=== PATIENT | male | born 1935 | race Caucasian/White ===

== ENCOUNTER 2017-12-20 10:03 | Inpatient (IN) | payer OTHER, MEDICARE ==
[2017-12-20] VITALS (9 sets, daily range): BP systolic 120–160; BP diastolic 58–78; PULSE 62–96; RESP 16–20; TEMP 97.2–97.7; O2SAT 9–97
[~2017-12-20] VITALS: Ht 170.2 cm; Wt 93.0 kg
[~2017-12-20 10:03] MED LIST: GLIP5 PO; GLUC500C56 PO; LEVA500T33 PO; LORT7.5T3 PO; METF-324 PO; TAB-TAB PO; VASO10TA8 PO
[2017-12-20] MEDS ORDERED: ENAL5TAB PO (10:38)
[2017-12-20] MEDS ORDERED: GLIP10TA6 PO (10:38)
[2017-12-20] MEDS ORDERED: FINA5TAB2 (10:38)
[2017-12-20] MEDS ORDERED: BISACODYL 10 MG SUPP RECTAL PRN (11:15)
[2017-12-20] MEDS ORDERED: LACTULOSE SYRUP 20 GM/30 ML CUP PO PRN (11:15)
[2017-12-20] MEDS ORDERED: ACETAMINOPHEN 325 MG TAB PO PRN (11:15)
[2017-12-20] MEDS ORDERED: ceFAZolin 2 GM PREMIX 50 ML IV SCH (11:15)
[2017-12-20] MEDS ORDERED: SENNOSIDES 8.6 MG TAB PO PRN (11:15)
[2017-12-20] MEDS ORDERED: MAGNESIUM HYDROXIDE SUSP 30 ML CUP PO PRN (11:15)
[2017-12-20] MEDS ORDERED: cloNIDine HCL 0.1 MG TAB PO PRN (11:15)
[2017-12-20] MEDS ORDERED: SODIUM CHLORIDE 0.9% FLUSH 10 ML FLUSH IV FLUSH PRN (11:15)
[2017-12-20] MEDS ORDERED: ONDANSETRON HCL 4 MG/2 ML VIAL IV PUSH PRN (11:15)
[2017-12-20] MEDS ORDERED: ALUMINUM/MAGNESIUM/SIMETH 30 ML CUP PO PRN (11:15)
[2017-12-20 11:31] LABS: PROTHROMBIN TIME - PATIENT 10.4 SEC (9.8-11.6)
[2017-12-20] MEDS: SODIUM CHLOR 0.45% 1000 ML IV SCH ×2 (11:41→19:59)
[2017-12-20] MEDS ORDERED: MIDAZOLAM HCL 5 MG/5 ML VIAL ONE (12:50)
[2017-12-20] MEDS ORDERED: fentaNYL CITRATE 250 MCG/5 ML AMP ONE (12:50)
--- NOTE | 2017-12-20 13:34 | PD.RAD ---
Post Procedure Progress Note Procedure Date: December 20, 2017 Supervising Radiologist: Kwan Russell Proceduralist/Assist: Albina Curtis RT(R)(), Rosanne Carmona RT(R) Anesthesia: Conscious Sedation Plan of Activity Patient to Unit: [facility] Patient Condition: Good See PACS Report for procedural detail/treatment Kwan Russell MD December 20, 2017 13:34
[2017-12-20] MEDS: DOCUSATE SODIUM 50 MG/SENNA 8.6 MG TAB PO SCH (21:00)
[2017-12-20] MEDS: SODIUM CHLORIDE 0.9% FLUSH 10 ML FLUSH IV FLUSH SCH (21:00)
[2017-12-20] MEDS: SODIUM CHLOR 0.9% 1000 ML INJ 1,000 ML IV SCH (21:03)
[2017-12-21 00:59] VITALS: BP 94/50; PULSE 63; RESP 18; TEMP 97.8; O2SAT 95
[2017-12-21] MEDS: SODIUM CHLOR 0.9% 1000 ML INJ 1,000 ML IV SCH ×2 (03:55→17:03)
[2017-12-21 05:03] VITALS: BP 125/71; PULSE 88; RESP 18; TEMP 97.6; O2SAT 95
[2017-12-21] MEDS: SODIUM CHLORIDE 0.9% FLUSH 10 ML FLUSH IV FLUSH SCH ×2 (07:59→21:00)
[2017-12-21] MEDS: DOCUSATE SODIUM 50 MG/SENNA 8.6 MG TAB PO SCH ×2 (07:59→21:00)
[2017-12-21] MEDS: PANTOPRAZOLE SOD 40 MG DELAYED RELEASE TAB PO SCH (07:59)
[2017-12-21 08:35] VITALS: BP 151/83; PULSE 82; RESP 18; TEMP 97.7; O2SAT 95
--- NOTE | 2017-12-21 11:43 | HHI.NSPN ---
(Ovidio Perez) History Chief Complaint: Difficulty walking. (Ovidio Perez) Interval History 12/21/17: Pt had lumbar spinal drain placed yesterday. He denies headaches. His memory is poor as he doesn't remember who I am despite me seeing him in the office. No radiculopathy or paresthesias in LEs. He felt he ambulated better with PT today, note not yet available. (Ovidio Perez) Review of Systems General: Negative for: fever, chills, insomnia Respiratory: Negative for: shortness of breath, cough, sputum Cardiovascular: Negative for: chest pain Gastrointestinal: Negative for: nausea, vomitting, diarrhea, constipation ( Ovidio Perez) Exam Results Vital Signs Date Time Temp Pulse Resp B/P (MAP) Pulse Ox O2 Delivery O2 Flow Rate FiO2 12/21/17 08:35 97.7 82 18 151/83 (105) 95 12/20/17 17:00 Room Air 12/20/17 15:00 2.00 Intake and Output 12/21/17 12/21/17 12/22/17 08:00 16:00 00:00 Intake Total 902 ml Output Total 280 ml Balance 622 ml (Ovidio Perez) Physical Examination General: Pt awake and alert. Sitting up in bed in NAD. Eyes: Pupils equal. Sclera anicteric. Resp: CTA bilaterally. Heart: NSR no murmurs Abd: Soft positive bs Skin: No cyanosis or erythema. SCDs in place. Muscle: Moves all 4 extremities with good strength. Neuro: Pt awake and alert. Sitting up in bed. Pupils equal. Speech clear. Sensation intact in LEs. (Ovidio Perez) Medical Decision Making Impression and Plan A: 82 y/o M s/p lumbar spinal drain for evaluation of possible NPH. P: Continue with lumbar spinal drain Continue with PT. (Ovidio Perez) Ovidio Perez December 21, 2017 11:43 Aravind Kuo MD December 22, 2017 07:31
[2017-12-21 12:00] VITALS: BP 123/56; PULSE 70; RESP 18; TEMP 98.1; O2SAT 96
--- NOTE | 2017-12-21 15:08 | RADRPT ---
EXAM DATE/TIME: 12/20/2017 13:20 [place] COMPARISON: No previous studies available for comparison. INDICATIONS : Patient presents with weakness and falls in need of lumbar drain. MEDICAL HISTORY : DM HTN Dysuria Arthropathy Urinary Incontinance SURGIAL HISTORY : Laproscopic Cholecystectomy ENCOUNTER: Initial ACUITY: 1 year PAIN SCORE: 0/10 LUMBAR PUNCTURE TIME: 1315 hours FLUORO TIME: 1.08 minutes IMAGE SERIES: 3 SEDATION TIME: 30 minutes LEVEL: Tip of lumbar drain was placed at T10 ? cm of water 1.) 2 mg midazolam (Versed) IV 2.) 100 mcg fentanyl (Sublimaze) IV DEVICE(S): 1.) 5 Arabic lumbar drain catheter PROCEDURE : 1. Fluoroscopically guided lumbar drain placement. 2. Conscious sedation with continuous EKG and oximetry monitoring. The risks, benefits and alternatives to the procedure were explained and verbal and written consent w as obtained. The site was prepped in sterile fashion. Full sterile technique was used, including ca p, mask, sterile gloves and gown and a large sterile sheet. Hand hygiene and 2% chlorhexidine and/or betadine/alcohol prep was utilized per protocol for cutaneous antisepsis. The skin and subcutaneous tissues were infiltrated with local anesthetic solution. With fluoroscopic guidance the lumbar thecal sac was punctured with a 14 gauge Touhy needle and a lum bar drain was placed with its tip at the level as described above and the catheter was sutured in darby ce. CSF was identified returning from the catheter at the termination of the procedure. Conscious sedation was performed with the prescribed dosages and duration as above in the presence of an independent trained radiology nurse to assist in the monitoring of the patient. EKG and oximetry remained stable throughout the procedure. The patient tolerated the procedure well and there were n o complications. The patient was sent to post anesthesia recovery in stable condition. CONCLUSION: Uncomplicated lumbar drain placement as above. Kwan Russell MD on December 21, 2017 at 15:05 Board Certified Radiologist. This report was verified electronically.
[2017-12-21 16:00] VITALS: BP 160/76; PULSE 72; RESP 18; TEMP 97.6; O2SAT 95
[2017-12-21 20:12] VITALS: BP 148/65; PULSE 85; RESP 18; TEMP 98.7; O2SAT 97
[2017-12-22 00:26] VITALS: BP 177/81; PULSE 82; RESP 20; TEMP 97.8; O2SAT 97
[2017-12-22 04:31] VITALS: BP 152/76; PULSE 84; RESP 20; TEMP 97.1; O2SAT 99
[2017-12-22] MEDS: SODIUM CHLOR 0.9% 1000 ML INJ 1,000 ML IV SCH ×3 (05:57→22:56)
[2017-12-22] MEDS ORDERED: DEXTROSE 50% IN WATER 50 ML VIAL(D50) IV PUSH PRN (07:45)
[2017-12-22] MEDS ORDERED: GLUCAGON 1 MG/ML VIAL OTHER PRN (07:45)
[2017-12-22] MEDS: SODIUM CHLORIDE 0.9% FLUSH 10 ML FLUSH IV FLUSH SCH ×2 (08:39→22:55)
[2017-12-22] MEDS: PANTOPRAZOLE SOD 40 MG DELAYED RELEASE TAB PO SCH (08:39)
[2017-12-22] MEDS: INSULIN NovoLIN REGULAR SUPPLEMENTAL SCALE SQ SCH ×4 (08:39→22:55)
[2017-12-22] MEDS: DOCUSATE SODIUM 50 MG/SENNA 8.6 MG TAB PO SCH ×2 (08:40→22:55)
[2017-12-22] MEDS: FINASTERIDE 5 MG TAB PO SCH (08:42)
[2017-12-22] MEDS: glipiZIDE 10 MG TAB PO SCH (08:43)
[2017-12-22] MEDS: ENALAPRIL MALEATE 5 MG TAB PO SCH (08:43)
[2017-12-22 09:04] VITALS: BP 150/68; PULSE 66; RESP 19; TEMP 97.5; O2SAT 95
[2017-12-22 12:00] VITALS: BP 126/62; PULSE 68; RESP 20; TEMP 97.5; O2SAT 96
--- NOTE | 2017-12-22 12:42 | HHI.NSPN ---
History Chief Complaint: Difficulty walking. Interval History 12/21/17: Pt had lumbar spinal drain placed yesterday. He denies headaches. His memory is poor as he doesn't remember who I am despite me seeing him in the office. No radiculopathy or paresthesias in LEs. He felt he ambulated better with PT today, note not yet available. 12/22/17: Pt states walking better today. Denies headaches. No n/v. States urinary incontinence with some improvement. Memory stable. Review of Systems General: Negative for: fever, chills, insomnia Respiratory: Negative for: shortness of breath, cough, sputum Cardiovascular: Negative for: chest pain Gastrointestinal: Negative for: nausea, vomitting, diarrhea, constipation Exam Results Vital Signs Date Time Temp Pulse Resp B/P (MAP) Pulse Ox O2 Delivery O2 Flow Rate FiO2 12/22/17 09:04 97.5 66 19 150/68 (95) 95 12/20/17 17:00 Room Air 12/20/17 15:00 2.00 Intake and Output 12/22/17 12/22/17 12/23/17 08:00 16:00 00:00 Intake Total 1000 ml Output Total 480 ml 80 ml Balance 520 ml -80 ml Physical Examination General: Pt awake and alert. Sitting up in chair in NAD. Eyes: Pupils equal. Sclera anicteric. Resp: CTA bilaterally. Heart: NSR no murmurs Abd: Soft positive bs Skin: No cyanosis or erythema. Muscle: Moves all 4 extremities with good strength. Ambulated with PT with improved gait. Neuro: Pt awake and alert. Sitting up in bed. Pupils equal. Speech clear. Sensation intact in LEs. Lab, Micro, Other Results Last Impressions Lumbar Puncture Fluoroscopy 12/20/17 0000 Signed Impressions: Service Date/Time: December 13:20 - CONCLUSION: Uncomplicated lumbar drain placement as above. Kwan Russell MD 12/22/17 12/22/17 12/23/17 15:00 23:00 07:00 Output Total 80 ml Balance -80 ml Drainage Total 80 ml Medical Decision Making Impression and Plan A: 82 y/o M s/p lumbar spinal drain for evaluation of possible NPH. P: Continue with lumbar spinal drain Continue with PT. d/c lumbar spinal drain tomorrow am. Ovidio Perez December 22, 2017 12:42 pm
[2017-12-22] MEDS ORDERED: LOPERAMIDE HCL 2 MG CAP PO PRN (12:45)
[2017-12-22 16:00] VITALS: BP 169/73; PULSE 67; RESP 19; TEMP 97.5; O2SAT 97
[2017-12-22 22:10] VITALS: BP 150/70; PULSE 80; RESP 17; TEMP 97.9; O2SAT 95
[2017-12-23 00:20] VITALS: BP 145/65; PULSE 88; RESP 18; TEMP 98.1; O2SAT 96
[2017-12-23 04:45] VITALS: BP 140/78; PULSE 78; RESP 19; TEMP 97; O2SAT 96
[2017-12-23 08:00] VITALS: BP 182/78; PULSE 64; RESP 18; TEMP 97.3; O2SAT 97
[2017-12-23] MEDS: SODIUM CHLORIDE 0.9% FLUSH 10 ML FLUSH IV FLUSH SCH (08:52)
[2017-12-23] MEDS: INSULIN NovoLIN REGULAR SUPPLEMENTAL SCALE SQ SCH ×2 (08:52→13:38)
[2017-12-23] MEDS: PANTOPRAZOLE SOD 40 MG DELAYED RELEASE TAB PO SCH (08:53)
[2017-12-23] MEDS: FINASTERIDE 5 MG TAB PO SCH (08:53)
[2017-12-23] MEDS: glipiZIDE 10 MG TAB PO SCH (08:53)
[2017-12-23] MEDS: ENALAPRIL MALEATE 5 MG TAB PO SCH (08:53)
[2017-12-23] MEDS: DOCUSATE SODIUM 50 MG/SENNA 8.6 MG TAB PO SCH ×2 (08:53→08:57)
[2017-12-23] MEDS: SODIUM CHLOR 0.9% 1000 ML INJ 1,000 ML IV SCH (09:00)
--- NOTE | 2017-12-23 11:06 | HHI.NSPN ---
(Ovidio Perez) History Chief Complaint: Difficulty walking. (Ovidio Perez) Interval History 12/21/17: Pt had lumbar spinal drain placed yesterday. He denies headaches. His memory is poor as he doesn't remember who I am despite me seeing him in the office. No radiculopathy or paresthesias in LEs. He felt he ambulated better with PT today, note not yet available. 12/22/17: Pt states walking better today. Denies headaches. No n/v. States urinary incontinence with some improvement. Memory stable. 12/23/17: Pts lumbar drain removed this morning. He denies headaches. No numbness or paresthesias in LEs. He wants to go home later today if no drainage. (Ovidio Perez) Review of Systems General: Negative for: fever, chills, insomnia Respiratory: Negative for: shortness of breath, cough, sputum Cardiovascular: Negative for: chest pain Gastrointestinal: Negative for: nausea, vomitting, diarrhea, constipation ( Ovidio Perez) Exam Results Vital Signs Date Time Temp Pulse Resp B/P (MAP) Pulse Ox O2 Delivery O2 Flow Rate FiO2 12/23/17 08:00 97.3 64 18 182/78 (112) 97 12/20/17 17:00 Room Air 12/20/17 15:00 2.00 Intake and Output 12/23/17 12/23/17 12/23/17 07:59 15:59 23:59 Intake Total 700 ml Output Total 980 ml 250 ml Balance -280 ml -250 ml (Ovidio Perez) Physical Examination General: Pt awake and alert. laying in bed. Eyes: Pupils equal. Sclera anicteric. Resp: CTA bilaterally. Heart: NSR no murmurs Abd: Soft positive bs Skin: No cyanosis or erythema. Muscle: Moves all 4 extremities with good strength. Neuro: Pt awake and alert. laying flat in bed. Pupils equal. Speech clear. Sensation intact in LEs. (Ovidio Perez) Lab, Micro, Other Results Last Impressions Lumbar Puncture Fluoroscopy 12/20/17 0000 Signed Impressions: Service Date/Time: December 13:20 - CONCLUSION: Uncomplicated lumbar drain placement as above. Kwan Russell MD 12/23/17 12/23/17 12/24/17 14:59 22:59 06:59 Output Total 250 ml Balance -250 ml Output Urine Total 250 ml (Ovidio Perez) Medical Decision Making Impression and Plan A: 82 y/o M s/p lumbar spinal drain for evaluation of possible NPH. P: lumbar spinal drain removed. Continue with bedrest for 6 hours. oob after 6 hours and d/c home if no drainage. (Ovidio Perez) Attending Statement The exam, history, and the medical decision-making described in the above note were completed with the assistance of the mid-level provider. I reviewed and agree with the findings presented. I attest that I had a [id number] encounter with the patient on the same day, and personally performed and documented my assessment and findings in the medical record. (Aravind Kuo MD) Ovidio Perez December 23, 2017 11:06 Aravind Kuo MD December 23, 2017 12:04
[2017-12-23 12:00] VITALS: BP 170/75; PULSE 62; RESP 18; TEMP 97.9; O2SAT 97
== END 2017-12-23 14:28 | disposition home or self-care (01) | DRG 93 ==
LOC: HROP 10:03 → HRIP 10:06 → HROP 18:12 → N05A 18:17
PROVIDERS: ADMIT Neurological Surgery; ATTEND Neurological Surgery
PROC: 009U30Z Drainage of Spinal Canal with Drainage Device, Percutaneous Approach (ICD-10-PCS; principal; 2017-12-21)
PROC: B01BZZZ Fluoroscopy of Spinal Cord (ICD-10-PCS; 2017-12-21)
DX: R27.0 Ataxia, unspecified (principal); E11.9 Type 2 diabetes mellitus without complications; Z79.84 Long term (current) use of oral hypoglycemic drugs; I10 Essential (primary) hypertension; R32 Unspecified urinary incontinence; Z91.81 History of falling
CPT/HCPCS: 63741; 77003; 82948; 85610; 85730; 94150; 99152; 99153; C1755; J2250; J3010; J7030

== ENCOUNTER → 2018-01-07 | Outpatient (CLI) | payer OTHER ==
[~2018-01-07] MED LIST changes: +DULA10IN SQ; +ENAL5TAB PO; +FINA5TAB2; +GLIP10TA6 PO; -GLIP5 PO; -GLUC500C56 PO; +HYDR-3366 PO; -LEVA500T33 PO; +LISI10TA3 PO; -LORT7.5T3 PO; -METF-324 PO; -TAB-TAB PO; -VASO10TA8 PO; +VITA2000 PO
== END ==
LOC: CPRE 11:24
PROVIDERS: ATTEND Neurological Surgery
DX: G91.2 (Idiopathic) normal pressure hydrocephalus (principal)

== ENCOUNTER 2018-01-11 08:06 | Inpatient (IN) | payer OTHER, MEDICARE ==
[~2018-01-11] VITALS: Ht 172.7 cm; Wt 99.4 kg
[~2018-01-11 08:06] MED LIST changes: -ENAL5TAB PO; -HYDR-3366 PO
[2018-01-11] MEDS ORDERED: LACTATED RINGER'S 1000 ML IV PRN (08:45)
[2018-01-11] MEDS ORDERED: METOPROLOL TARTRATE 25 MG TAB PO PRN (08:45)
[2018-01-11] MEDS ORDERED: SODIUM CHLORID 0.9% 500 ML IV PRN (08:45)
[2018-01-11] MEDS ORDERED: CHLORHEXIDINE GLUCONATE 2 % 1 PACK (2 CLOTHS) TOPICAL PRN (08:45)
[2018-01-11] MEDS ORDERED: VANCOMYCIN 1 GM/200 ML PREMIX ON-CALL IV SCH (08:45)
[2018-01-11] MEDS ORDERED: POVIDONE IODINE 5% (ANTISEPSIS KIT) 4 APPLICATIONS EACH NARE PRN (08:45)
[2018-01-11] MEDS ORDERED: VANCOMYCIN HCL 1000 MG VIAL ONE (08:53)
[2018-01-11] MEDS ORDERED: SODIUM CHLOR 0.9% 250 ML INJ 250 ML ONE (08:53)
[2018-01-11] MEDS ORDERED: ACETAMINOPHEN 1000 MG/100 ML 100 ML IV ONE (10:29)
[2018-01-11] MEDS ORDERED: GELFOAM SIZE 100 ONE (10:58)
[2018-01-11] MEDS ORDERED: THROMBIN (TOPICAL) 5,000 UNIT VIAL ONE (10:58)
[2018-01-11] MEDS ORDERED: GENTAMICIN SULFATE 80 MG/2 ML VIAL ONE (10:58)
[2018-01-11] MEDS ORDERED: BUPIVACAINE/EPINEPHRINE 0.5% PF 10 ML VIAL ONE (10:58)
[2018-01-11] MEDS ORDERED: LIDOCAINE HCL 1% PF 5 ML SYRINGE OTHER ONE (12:00)
[2018-01-11] MEDS ORDERED: PROPOFOL 200 MG/20 ML AMP IV ONE (12:00)
[2018-01-11] MEDS ORDERED: PHENYLEPH/NS 1000 MCG/10 ML SYR IV ONE (12:00)
[2018-01-11] MEDS ORDERED: GLYCOPYRROLATE 1 MG/5 ML SYRINGE IV PUSH ONE (12:00)
[2018-01-11] MEDS ORDERED: ROCURONIUM INJ 50 MG/5 ML SYRINGE IV PUSH ONE (12:00)
[2018-01-11] MEDS ORDERED: ONDANSETRON HCL 4 MG/2 ML VIAL IV PUSH ONE (12:00)
[2018-01-11] MEDS ORDERED: DEXAMETHASONE SOD PHOS 4 MG/ML VIAL IV ONE (12:00)
[2018-01-11] MEDS ORDERED: NS + KCL 20 MEQ INJ 1,000 ML IV SCH (12:40)
[2018-01-11] MEDS ORDERED: LACTULOSE SYRUP 20 GM/30 ML CUP PO PRN (12:45)
[2018-01-11] MEDS ORDERED: ACETAMINOPHEN 325 MG TAB PO PRN (12:45)
[2018-01-11] MEDS ORDERED: ALUMINUM/MAGNESIUM/SIMETH 30 ML CUP PO PRN (12:45)
[2018-01-11] MEDS ORDERED: RESP: ALBUTEROL 2.5 MG/3 ML NEB (PRN) NEB (12:45)
[2018-01-11] MEDS ORDERED: MAGNESIUM HYDROXIDE SUSP 30 ML CUP PO PRN (12:45)
[2018-01-11] MEDS ORDERED: GLUCAGON 1 MG/ML VIAL OTHER PRN (12:45)
[2018-01-11] MEDS ORDERED: DO NOT ADM ANY ANTICOAGULANT DRUGS PRN (12:45)
[2018-01-11] MEDS ORDERED: BISACODYL 10 MG SUPP RECTAL PRN (12:45)
[2018-01-11] MEDS ORDERED: PROMETHAZINE INJ 25 MG/ML VIAL IM PRN (12:45)
[2018-01-11] MEDS ORDERED: DEXTROSE 50% IN WATER 50 ML VIAL(D50) IV PUSH PRN (12:45)
[2018-01-11] MEDS ORDERED: SENNOSIDES 8.6 MG TAB PO PRN (12:45)
[2018-01-11] MEDS ORDERED: MENTHOL LOZENGE BUCCAL PRN (12:45)
[2018-01-11] MEDS ORDERED: SODIUM CHLORIDE 0.9% FLUSH 10 ML FLUSH IV FLUSH PRN (12:45)
--- NOTE | 2018-01-11 12:48 | PD.OP ---
cc: Laurie Yusuf MD Operative Report Date of Surgery: January 11, 2018 Preoperative Diagnosis: Normal-pressure hydrocephalus Postoperative Diagnosis: Same Procedure: Right frontal ventriculoperitoneal shunt placement with Codman programmable valve Anesthesia: General endotracheal by Alexus baptiste Surgeon: Aravind Kuo MD Physical Therapist Clinic Director(s): Radha Hoover Operation and Findings: Following administration of general endotracheal anesthesia, patient was placed in a supine position and a Brunson catheter placed along with sequential compression devices. Vancomycin 1 g was and administered intravenously. The head secured in donut and turned 30 to the left side and a shoulder roll placed in the right side and all pressure points adequately padded. The right frontal parietal occipital anterior neck and chest and abdomen area was shaved and prepped with a Betadine solution and Chloraprep. Draping with Ioban also undertaken along with the usual sterile draping. Using landmarks of 11 cm behind the nasion and 3 cm right of the midline a curvilinear right frontal incision was made after infiltrating the skin was 0.5% Marcaine with epinephrine solution. A ramana hole was made with an automatic wood web weaving machine operator and the underlying dura cauterized with bipolar cautery and opened in a cruciate format. Right subcostal abdominal incision site was then infiltrated with 0.5% Marcaine with epinephrine solution and incision made extending down through the anterior fascia of the rectus sheath and then the posterior fascia also incised and the peritoneal wall identified and also incised in a 3-0 silk pursestring suture was been placed around the opening. A subcutaneous tunnel was then created between the frontal and the abdominal incision site with a small interim incision in the neck and the bactiseal Codman peritoneal catheter was then tunneled through. The catheter was connected to a [employer] Codman programmable valve set at 100 mm a water setting with the anti-siphon device. The ventricular catheter was then passed the 6 cm in depth and clear CSF encountered and this was then connected to the proximal reservoir valve with a 2 -0 silk tie. Good distal CSF flow run off was noted from the peritoneal catheter which was then dropped into the peritoneum and the pursestring suture was tied along with the approximation of the anterior rectus sheath with 3-0 Vicryl interposition and 3-0 Vic[address] subcuticular cyst also place an interrupted fashion and final skin closure with violeta. Incision sites were irrigated with the saline solution prior to closure. The right frontal and small neck incision areas were then also approximated with 3-0 Vicryl galeal stitches and violeta. Sterile dressings then applied and the patient extubated and taken recovery room. There were no intraoperative complications and all sponge and needle, was correct at the end of the procedure. Estimated blood loss 25 ml. Aravind Kuo MD January 11, 2018 12:48
[2018-01-11] MEDS ORDERED: HYDR-3366 PO (12:49)
[2018-01-11] MEDS: ONDANSETRON HCL 4 MG/2 ML VIAL IV PUSH PRN (13:00)
[2018-01-11] MEDS ORDERED: *LABETALOL HCL 100 MG/20 ML VIAL PERIprocedural Use ONLY ONE (13:04)
[2018-01-11] MEDS ORDERED: *morphine SULFATE 4 MG/ML PERIprocedure ONLY ONE (13:08)
[2018-01-11] MEDS ORDERED: SUGAMMADEX SODIUM 200 MG/2 ML VIAL IV PUSH ONE (13:51)
--- NOTE | 2018-01-11 15:22 | RADRPT ---
EXAM DATE: 01/11/2018 3:06 PM EDT AGE/SEX: 82 years / Male INDICATIONS: Post-op LINE FISHER shunt. CLINICAL DATA: This is the patient's initial encounter. Patient reports that signs and symptoms have been present for 1 day and indicates a pain score of 6/10. MEDICAL/SURGICAL HISTORY: Hypertension. Diabetes mellitus type I. Cholecystectomy. LINE FISHER shunt. RADIATION DOSE: 56.35 CTDI (mGy) COMPARISON: POI, MR BRAIN W AND W/O CONTRAST, 11/02/2017. . TECHNIQUE: CT of the head without contrast. Using automated exposure control and adjustment of the mA and/or kV according to patient size, radiation dose was kept as low as reasonably achievable to ob tain optimal diagnostic quality images. FINDINGS: Cerebrum: Interval placement of right frontal ventriculostomy catheter with tip in the body of the r ight lateral ventricle. Small amount of postsurgical anterior frontal pneumocephalus. No significant intra or extra-axial hemorrhage. Ventricles are stable in size. Prominent diffuse cerebral atrophy si milar to previous exam. Posterior Fossa: The cerebellum and brainstem are intact. The 4th ventricle is midline. The cerebe llopontine angle is unremarkable. Extracranial: The visualized portion of the orbits is intact. Chronic appearing opacification of the left maxillary sinus. Skull: The calvaria is intact. No evidence of skull fracture. CONCLUSION: 1. Expected postoperative features of right frontal ventriculostomy catheter with catheter tip in th e body of the right lateral ventricle. 2. Lateral ventricles are stable in size. 3. No intercurrent hemorrhage. Electronically signed by: Kwan Russell MD 01/11/2018 3:21 PM EDT
[2018-01-11 16:15] VITALS: BP 111/65; PULSE 94; RESP 18; TEMP 97.8; O2SAT 94
[2018-01-11] MEDS: MORPHINE SULFATE 4 MG/ML INJ IV PUSH PRN (16:53)
[2018-01-11] MEDS: INSULIN NovoLIN REGULAR SUPPLEMENTAL SCALE SQ SCH ×2 (18:13→22:27)
--- NOTE | 2018-01-11 19:28 | EKG ---
Date Performed: 01/11/2018 Time Performed: 08:47:47 PTAGE: 82 years EKG: Sinus rhythm WITH FIRST DEGREE AV BLOCK MARKED LEFT AXIS DEVIATION RIGHT BUNDLE BRANCH BLOCK POSSIBLE LEFT VENTRI CULAR HYPERTROPHY ABNORMAL ECG Compared to PREVIOUS TRACING , the patient has a new right bundle branch block. PREVIOUS TRACIN 08.03 DOCTOR: Shanell Corona Interpretating Date/Time 01/11/2018 19:25:51
[2018-01-11 22:00] VITALS: BP 126/62; PULSE 98; RESP 20; TEMP 98; O2SAT 97
[2018-01-11] MEDS: DOCUSATE SODIUM 50 MG/SENNA 8.6 MG TAB PO SCH (22:12)
[2018-01-11] MEDS: SODIUM CHLORIDE 0.9% FLUSH 10 ML FLUSH IV FLUSH SCH (22:12)
[2018-01-11] MEDS: ACETAMINOPHEN/HYDROcodone 325 MG/10 MG TAB PO PRN (22:12)
[2018-01-11] MEDS: ZOLPIDEM TARTRATE 5 MG TAB PO PRN (22:31)
[2018-01-12] VITALS (7 sets, daily range): BP systolic 118–167; BP diastolic 63–83; PULSE 70–90; RESP 18–20; TEMP 97.7–98.7; O2SAT 95–98
[2018-01-12] MEDS: CHOLECALCIFEROL (VIT D3) 1000 UNIT TAB PO SCH (08:08)
[2018-01-12] MEDS: ACETAMINOPHEN/HYDROcodone 325 MG/10 MG TAB PO PRN ×2 (08:08→18:13)
[2018-01-12] MEDS: PANTOPRAZOLE SODIUM 40 MG VIAL IVP SCH (08:09)
[2018-01-12] MEDS: SODIUM CHLORIDE 0.9% FLUSH 10 ML FLUSH IV FLUSH SCH ×2 (08:09→20:08)
[2018-01-12] MEDS: FINASTERIDE 5 MG TAB PO SCH (08:09)
[2018-01-12] MEDS: LISINOPRIL 10 MG TAB PO SCH (08:09)
[2018-01-12] MEDS: DOCUSATE SODIUM 50 MG/SENNA 8.6 MG TAB PO SCH ×2 (08:10→20:08)
[2018-01-12] MEDS: INSULIN NovoLIN REGULAR SUPPLEMENTAL SCALE SQ SCH ×4 (09:31→20:19)
[2018-01-12] MEDS: ONDANSETRON HCL 4 MG/2 ML VIAL IV PUSH PRN (17:04)
--- NOTE | 2018-01-12 17:09 | HHI.NSPN ---
History Chief Complaint: states confusion and tremors. Interval History 01/11: The patient presented to [facility] for placement of a right frontal ventriculoperitoneal shunt with a Codman programmable valve. Post-operatively he was admitted to a regular med/surg floor for further care and monitoring. 01/12: The patient is awake eating supper with his 's assistance when seen this afternoon. He denied any headache or dizziness but his states that he is confused, has had nausea as well as some hallucinations. She also reports that he has had tremors to the upper extremities. He denied any extremity pain, numbness or tingling. When examined the patient was oriented times three. He did have some numbness to the left lower extremity which he said was chronic. He also has some proximal right upper extremity pain. He had no motor deficits upon testing. His speech was clear but halting. A tremor was noted to both upper extremities. Exam Results 01/10/18 01/10/18 01/11/18 01/11/18 01/12/18 01/12/18 06:00 18:00 06:00 18:00 06:00 18:00 Intake Total 1020 ml 1050 ml 720 ml Output Total 1700 ml 600 ml 300 ml Balance -680 ml 450 ml 420 ml Intake Oral 1050 ml 720 ml IV Total 220 ml Other 800 ml Output Urine Total 1675 ml 600 ml 300 ml Estimated Blood Loss 25 ml # Bowel Movements 0 Vital Signs Date Time Temp Pulse Resp B/P (MAP) Pulse Ox O2 Delivery O2 Flow Rate FiO2 01/12/18 16:04 98.5 75 20 151/70 (97) 97 01/12/18 11:50 98.4 70 20 123/65 (84) 96 01/12/18 07:44 98.7 77 20 131/63 (85) 95 01/12/18 05:00 98.3 80 20 118/69 (85) 98 01/12/18 00:40 98.0 88 19 120/63 (82) 98 01/11/18 22:00 98.0 98 20 126/62 (83) 97 01/11/18 16:15 97.8 94 18 111/65 (80) 94 01/11/18 14:30 97.4 90 16 139/71 (93) 96 Nasal Cannula 2 01/11/18 14:00 85 17 140/65 (90) 97 Nasal Cannula 2 01/11/18 13:45 82 18 148/69 (95) 97 Nasal Cannula 2 01/11/18 13:30 79 14 154/72 (99) 97 Nasal Cannula 2 01/11/18 13:15 77 16 162/79 (106) 99 Nasal Cannula 2 01/11/18 13:00 78 17 178/79 (112) 99 Nasal Cannula 2 01/11/18 12:45 97.5 77 11 195/87 (123) 98 Nasal Cannula 2 01/11/18 09:08 96.5 74 16 176/73 (107) 98 Physical Examination GENERAL: Awake & alert in bed eating supper w/his 's assistance. Affect essentially normal. He readily interacts. He is not in any distress. HEENT: Normocephalic, intact dressing w/bloody drainage to right frontoparietal scalp w/o erythema or streaking. Well approximated right parietal incision w/ sutures w/o drainage, erythema or streaking. PERRLA, EOMI. MMM & pink, tongue midline to protrusion. MUSCULOSKELETAL: ESQUIVEL spontaneously & purposefully. No evident clubbing or deformity. Tremors at rest to BUE. NEUROLOGICAL: AAOx3. Speech clear & appropriate but halting. Follows simple commands w/o difficulty. CN II through XII appear grossly intact. Sensation decreased to the LLE chronically per patient o/w intact to light touch to the extremities. Motor strength is 5/5 to all major flexion & extension muscle groups of the extremities. Tremors noted to BUE at rest. Lab, Micro, Other Results Recent Impressions Head CT 01/11/18 0000 Signed Impressions: CONCLUSION: 1. Expected postoperative features of right frontal ventriculostomy catheter w ith catheter tip in the body of the right lateral ventricle. 2. Lateral ventricles are stable in size. 3. No intercurrent hemorrhage. Medical Decision Making Impression and Plan Impression: Normal-pressure hydrocephalus S/p right frontal ventriculoperitoneal shunt placement with Codman programmable valve () Patient doing fairly well post-operatively. W/BUE tremors, confusion & hallucinations post-operatively. No motor deficits. Per patient chronic LLE numbness. Afebrile since admission. No hypertension since early yesterday afternoon. CT brain demonstrated ventriculostomy catheter tip in right lateral ventricle. Ventricles stable in size. No haemorrhage. Plan: Discussed concerns w/patient & . Neuro checks q4h. VS q4h. Mobilise patient w/assistance. Physical Therapy eval & tx. Change dressing to surgical site daily. 1800 calorie ADA diet. Wolf Lugo January 12, 2018 17:09
[2018-01-12] MEDS: ZOLPIDEM TARTRATE 5 MG TAB PO PRN (23:17)
[2018-01-13 05:32] VITALS: BP 113/66; PULSE 82; RESP 18; TEMP 97.6; O2SAT 96
[2018-01-13 05:35] VITALS: BP 154/68; PULSE 75; RESP 20; TEMP 97.4; O2SAT 96
[2018-01-13 08:03] VITALS: BP 151/66; PULSE 83; RESP 20; TEMP 97.3; O2SAT 96
[2018-01-13] MEDS: DOCUSATE SODIUM 50 MG/SENNA 8.6 MG TAB PO SCH ×5 (09:00→23:07)
[2018-01-13] MEDS: LISINOPRIL 10 MG TAB PO SCH (09:22)
[2018-01-13] MEDS: FINASTERIDE 5 MG TAB PO SCH (09:22)
[2018-01-13] MEDS: CHOLECALCIFEROL (VIT D3) 1000 UNIT TAB PO SCH (09:22)
[2018-01-13] MEDS: SODIUM CHLORIDE 0.9% FLUSH 10 ML FLUSH IV FLUSH SCH ×2 (09:23→22:19)
[2018-01-13] MEDS: PANTOPRAZOLE SODIUM 40 MG VIAL IVP SCH (09:23)
[2018-01-13] MEDS: INSULIN NovoLIN REGULAR SUPPLEMENTAL SCALE SQ SCH ×4 (09:23→22:19)
[2018-01-13 12:15] VITALS: BP 182/77; PULSE 75; RESP 21; TEMP 97.5; O2SAT 99
--- NOTE | 2018-01-13 14:01 | HHI.NSPN ---
History Chief Complaint: Confusion persists per . Interval History 01/11: The patient presented to [facility] for placement of a right frontal ventriculoperitoneal shunt with a Codman programmable valve. Post-operatively he was admitted to a regular med/surg floor for further care and monitoring. 01/12: The patient is awake eating supper with his 's assistance when seen this afternoon. He denied any headache or dizziness but his states that he is confused, has had nausea as well as some hallucinations. She also reports that he has had tremors to the upper extremities. He denied any extremity pain, numbness or tingling. When examined the patient was oriented times three. He did have some numbness to the left lower extremity which he said was chronic. He also has some proximal right upper extremity pain. He had no motor deficits upon testing. His speech was clear but halting. A tremor was noted to both upper extremities. 01/13: This afternoon the patient is awake and sitting up in the chair watching TV with his . He continues to be confused and his reports that he will clear but if he sleeps he will be confused again when he wakes up. His reports that earlier he was trying picking up covers and putting them on him even though he had none in his hand. He had no complaints other than some itching to the top of the head at the surgical site. His motor strength remains good and he had no sensory deficits except at the right frontoparietal surgical site. No tremors were noted. Exam Results 01/11/18 01/11/18 01/12/18 01/12/18 01/13/18 01/13/18 06: 18:00 06:00 18:00 06:00 18:00 Intake Total 1020 ml 1050 ml 720 ml 600 ml Output Total 1700 ml 600 ml 300 ml 275 ml Balance -680 ml 450 ml 420 ml 325 ml Intake Oral 1050 ml 720 ml 600 ml IV Total 220 ml Other 800 ml Output Urine Total 1675 ml 600 ml 300 ml 275 ml Estimated Blood Loss 25 ml # Voids 2 2 1 # Bowel Movements 0 Vital Signs Date Time Temp Pulse Resp B/P (MAP) Pulse Ox O2 Delivery O2 Flow Rate FiO2 01/13/18 12:15 97.5 75 21 182/77 (112) 99 01/13/18 08:03 97.3 83 20 151/66 (94) 96 01/13/18 05:35 97.4 75 20 154/68 (96) 96 01/12/18 23:18 97.8 90 18 167/83 (111) 98 01/12/18 20:08 97.7 75 20 139/65 (89) 96 01/12/18 16:04 98.5 75 20 151/70 (97) 97 01/12/18 11:50 98.4 70 20 123/65 (84) 96 01/12/18 07:44 98.7 77 20 131/63 (85) 95 01/12/18 05:00 98.3 80 20 118/69 (85) 98 01/12/18 00:40 98.0 88 19 120/63 (82) 98 01/11/18 22:00 98.0 98 20 126/62 (83) 97 01/11/18 16:15 97.8 94 18 111/65 (80) 94 01/11/18 14:30 97.4 90 16 139/71 (93) 96 Nasal Cannula 2 01/11/18 14:00 85 17 140/65 (90) 97 Nasal Cannula 2 01/11/18 13:45 82 18 148/69 (95) 97 Nasal Cannula 2 01/11/18 13:30 79 14 154/72 (99) 97 Nasal Cannula 2 01/11/18 13:15 77 16 162/79 (106) 99 Nasal Cannula 2 01/11/18 13:00 78 17 178/79 (112) 99 Nasal Cannula 2 01/11/18 12:45 97.5 77 11 195/87 (123) 98 Nasal Cannula 2 01/11/18 09:08 96.5 74 16 176/73 (107) 98 Physical Examination GENERAL: Awake & alert sitting up in the chair visiting w/his & watching TV. Affect essentially normal. He readily interacts. He is not in any distress. HEENT: Normocephalic, intact dressing w/bloody drainage to right frontoparietal scalp w/o erythema or streaking, decreased sensation to area. Well approximated right parietal incision w/violeta w/o drainage, erythema or streaking. PERRLA, EOMI. MMM & pink, tongue midline to protrusion. MUSCULOSKELETAL: ESQUIVEL spontaneously & purposefully. No evident clubbing or deformity. Tremors at rest to BUE. NEUROLOGICAL: AAOx3. Speech clear & appropriate but halting. Follows simple commands w/o difficulty. CN II through XII appear grossly intact. Sensation intact to light touch to the extremities. Motor strength is 5/5 to all major flexion & extension muscle groups of the extremities. Lab, Micro, Other Results Recent Impressions Head CT 01/11/18 0000 Signed Impressions: CONCLUSION: 1. Expected postoperative features of right frontal ventriculostomy catheter w ith catheter tip in the body of the right lateral ventricle. 2. Lateral ventricles are stable in size. 3. No intercurrent hemorrhage. Medical Decision Making Impression and Plan Impression: Normal-pressure hydrocephalus S/p right frontal ventriculoperitoneal shunt placement with Codman programmable valve () Patient continues to do fairly well. Still w/confusion & hallucinations post- operatively. No motor or sensory deficits. Afebrile since admission. Intermittent hypertension. CT brain demonstrated ventriculostomy catheter tip in right lateral ventricle. Ventricles stable in size. No haemorrhage. Plan: Discussed concerns w/patient & . Neuro checks q4h. VS q4h. Mobilise patient w/assistance. Physical Therapy eval & tx. Change dressing to surgical site daily. 1800 calorie ADA diet. Wolf Lugo January 13, 2018 14:01
[2018-01-13 15:49] VITALS: BP 132/60; PULSE 72; RESP 20; TEMP 97.5; O2SAT 97
[2018-01-13] MEDS: ACETAMINOPHEN/HYDROcodone 325 MG/10 MG TAB PO PRN (17:31)
[2018-01-13 21:15] VITALS: BP 156/74; PULSE 74; RESP 20; TEMP 97.4; O2SAT 97
[2018-01-14 00:58] VITALS: BP 155/71; PULSE 92; RESP 20; TEMP 97.6; O2SAT 95
[2018-01-14 04:50] VITALS: BP 165/70; PULSE 80; RESP 20; TEMP 98.1; O2SAT 96
[2018-01-14] MEDS: CHOLECALCIFEROL (VIT D3) 1000 UNIT TAB PO SCH (08:19)
[2018-01-14] MEDS: LISINOPRIL 10 MG TAB PO SCH (08:19)
[2018-01-14] MEDS: FINASTERIDE 5 MG TAB PO SCH (08:20)
[2018-01-14] MEDS: INSULIN NovoLIN REGULAR SUPPLEMENTAL SCALE SQ SCH ×4 (08:21→20:40)
[2018-01-14] MEDS: SODIUM CHLORIDE 0.9% FLUSH 10 ML FLUSH IV FLUSH SCH ×2 (08:24→20:39)
[2018-01-14] MEDS: PANTOPRAZOLE SODIUM 40 MG VIAL IVP SCH (08:25)
[2018-01-14 08:54] VITALS: BP 174/73; PULSE 68; RESP 20; TEMP 97.5; O2SAT 97
--- NOTE | 2018-01-14 11:38 | HHI.NSPN ---
History Chief Complaint: Confusion with some improvement s/p SCRATCHER shunt for NPH. Interval History 01/11: The patient presented to [facility] for placement of a right frontal ventriculoperitoneal shunt with a Codman programmable valve. Post-operatively he was admitted to a regular med/surg floor for further care and monitoring. 01/12: The patient is awake eating supper with his 's assistance when seen this afternoon. He denied any headache or dizziness but his states that he is confused, has had nausea as well as some hallucinations. She also reports that he has had tremors to the upper extremities. He denied any extremity pain, numbness or tingling. When examined the patient was oriented times three. He did have some numbness to the left lower extremity which he said was chronic. He also has some proximal right upper extremity pain. He had no motor deficits upon testing. His speech was clear but halting. A tremor was noted to both upper extremities. 01/13: This afternoon the patient is awake and sitting up in the chair watching TV with his . He continues to be confused and his reports that he will clear but if he sleeps he will be confused again when he wakes up. His reports that earlier he was trying picking up covers and putting them on him even though he had none in his hand. He had no complaints other than some itching to the top of the head at the surgical site. His motor strength remains good and he had no sensory deficits except at the right frontoparietal surgical site. No tremors were noted. 01/14/18: Pt awake and alert. Denies any headaches. No n/v. He follows commands well. Some periods of confusion but improving. Review of Systems General: Negative for: fever, chills, insomnia Respiratory: Negative for: shortness of breath, cough, sputum Cardiovascular: Negative for: chest pain Gastrointestinal: Negative for: nausea, vomitting, diarrhea, constipation Exam Results Vital Signs Date Time Temp Pulse Resp B/P (MAP) Pulse Ox O2 Delivery O2 Flow Rate FiO2 01/14/18 08:54 97.5 68 20 174/73 (106) 97 01/11/18 14:30 Nasal Cannula 2 Physical Examination GENERAL: Awake & alert. Affect essentially normal. He readily interacts. He is not in any distress. HEENT: Normocephalic, intact dressing w/bloody drainage to right frontoparietal scalp w/o erythema or streaking, decreased sensation to area. Well approximated right parietal incision w/violeta w/o drainage, erythema or streaking. PERRLA, EOMI. MMM & pink, tongue midline to protrusion. RESP: CTA bilaterally HEART: NSR no murmurs. ABD: Incision clean and dry. No signs of infection. MUSCULOSKELETAL: ESQUIVEL spontaneously & purposefully. No evident clubbing or deformity. 5/5 strength in extremities. NEUROLOGICAL: AAOx3. Speech clear & appropriate but halting. Follows simple commands w/o difficulty. CN II through XII appear grossly intact. Sensation intact to light touch to the extremities. Motor strength is 5/5 to all major flexion & extension muscle groups of the extremities. Lab, Micro, Other Results Last Impressions Head CT 01/11/18 0000 Signed Impressions: CONCLUSION: 1. Expected postoperative features of right frontal ventriculostomy catheter w ith catheter tip in the body of the right lateral ventricle. 2. Lateral ventricles are stable in size. 3. No intercurrent hemorrhage. Medical Decision Making Impression and Plan A: 82 y/o M s/p right SCRATCHER shunt for NPH. P: Rehab placement Continue with PT Continue to monitor neuro. Ovidio Perez January 14, 2018 11:38 am
[2018-01-14 12:45] VITALS: BP 163/67; PULSE 67; RESP 17; TEMP 98; O2SAT 97
[2018-01-14 16:00] VITALS: BP 150/66; PULSE 71; RESP 18; TEMP 97.5; O2SAT 100
[2018-01-14] MEDS: ACETAMINOPHEN/HYDROcodone 325 MG/10 MG TAB PO PRN (19:35)
[2018-01-14 20:00] VITALS: BP 187/77; PULSE 72; RESP 20; TEMP 97.1; O2SAT 96
[2018-01-14] MEDS: cloNIDine HCL 0.1 MG TAB PO PRN (20:39)
[2018-01-14] MEDS: MORPHINE SULFATE 4 MG/ML INJ IV PUSH PRN (20:39)
[2018-01-15] VITALS (7 sets, daily range): BP systolic 135–190; BP diastolic 63–77; PULSE 67–86; RESP 16–20; TEMP 97.3–98.1; O2SAT 94–98
[2018-01-15] MEDS: MORPHINE SULFATE 4 MG/ML INJ IV PUSH PRN (02:14)
[2018-01-15] MEDS: FINASTERIDE 5 MG TAB PO SCH (08:57)
[2018-01-15] MEDS: CHOLECALCIFEROL (VIT D3) 1000 UNIT TAB PO SCH (08:57)
[2018-01-15] MEDS: PANTOPRAZOLE SODIUM 40 MG VIAL IVP SCH (08:58)
[2018-01-15] MEDS: DOCUSATE SODIUM 50 MG/SENNA 8.6 MG TAB PO SCH ×2 (08:58→21:00)
[2018-01-15] MEDS: LISINOPRIL 10 MG TAB PO SCH (08:59)
[2018-01-15] MEDS: SODIUM CHLORIDE 0.9% FLUSH 10 ML FLUSH IV FLUSH SCH ×2 (08:59→21:24)
[2018-01-15] MEDS: INSULIN NovoLIN REGULAR SUPPLEMENTAL SCALE SQ SCH ×4 (08:59→21:22)
[2018-01-15] MEDS: ACETAMINOPHEN/HYDROcodone 325 MG/10 MG TAB PO PRN (09:17)
--- NOTE | 2018-01-15 09:18 | HHI.NSPN ---
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 Interval History 01/11: The patient presented to [facility] for placement of a right frontal ventriculoperitoneal shunt with a Codman programmable valve. Post-operatively he was admitted to a regular med/surg floor for further care and monitoring. 01/12: The patient is awake eating supper with his 's assistance when seen this afternoon. He denied any headache or dizziness but his states that he is confused, has had nausea as well as some hallucinations. She also reports that he has had tremors to the upper extremities. He denied any extremity pain, numbness or tingling. When examined the patient was oriented times three. He did have some numbness to the left lower extremity which he said was chronic. He also has some proximal right upper extremity pain. He had no motor deficits upon testing. His speech was clear but halting. A tremor was noted to both upper extremities. 01/13: This afternoon the patient is awake and sitting up in the chair watching TV with his . He continues to be confused and his reports that he will clear but if he sleeps he will be confused again when he wakes up. His reports that earlier he was trying picking up covers and putting them on him even though he had none in his hand. He had no complaints other than some itching to the top of the head at the surgical site. His motor strength remains good and he had no sensory deficits except at the right frontoparietal surgical site. No tremors were noted. 01/14/18: Pt awake and alert. Denies any headaches. No n/v. He follows commands well. Some periods of confusion but improving. 01/16/28: Pt awake and alert. States he tried to get out of bed last night in a hurry to use the bathroom and had his SCDs on and was found on the ground. He states he landed forward and nothing hurts as a result of the fall. He does have a fresh abrasion to the left knee but not the right. He denies any knee pain. He denies hitting his head and does not have any espitia on his head. Review of Systems General: Negative for: fever, chills, insomnia Respiratory: Negative for: shortness of breath, cough, sputum Cardiovascular: Negative for: chest pain Gastrointestinal: Negative for: nausea, vomitting, diarrhea, constipation Exam Results Vital Signs Date Time Temp Pulse Resp B/P (MAP) Pulse Ox O2 Delivery O2 Flow Rate FiO2 01/15/18 09:03 97.8 81 16 190/77 (114) 95 01/15/18 00:20 21 01/11/18 14:30 Nasal Cannula 2 Intake and Output 01/15/18 01/15/18 01/16/18 08:00 16:00 00:00 Intake Total 0 ml Output Total 350 ml Balance -350 ml Physical Examination GENERAL: Awake & alert. Affect essentially normal. He readily interacts. He is not in any distress. Appears less confused today and more towards his baseline. HEENT: Normocephalic, intact dressing w/bloody drainage to right frontoparietal scalp w/o erythema or streaking, decreased sensation to area. Well approximated right parietal incision w/violeta w/o drainage, erythema or streaking. PERRLA, EOMI. MMM & pink, tongue midline to protrusion. RESP: CTA bilaterally HEART: NSR no murmurs. ABD: Incision clean and dry. No signs of infection. MUSCULOSKELETAL: ESQUIVEL spontaneously & purposefully. No evident clubbing or deformity. 5/5 strength in extremities. NEUROLOGICAL: AAOx3. Speech clear & appropriate but halting. Follows simple commands w/o difficulty. CN II through XII appear grossly intact. Sensation intact to light touch to the extremities. Motor strength is 5/5 to all major flexion & extension muscle groups of the extremities. Lab, Micro, Other Results Last Impressions Head CT 01/11/18 0000 Signed Impressions: CONCLUSION: 1. Expected postoperative features of right frontal ventriculostomy catheter w ith catheter tip in the body of the right lateral ventricle. 2. Lateral ventricles are stable in size. 3. No intercurrent hemorrhage. 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 P: Rehab placement Continue with PT Continue to monitor neuro. Rehab will remove violeta on 01/18/18. Ovidio Perez January 15, 2018 9:18 am
[2018-01-15] MEDS: cloNIDine HCL 0.1 MG TAB PO PRN (18:00)
[2018-01-15] MEDS: ZOLPIDEM TARTRATE 5 MG TAB PO PRN (21:24)
[2018-01-16] VITALS: BP 158/66; PULSE 72; RESP 20; TEMP 97.9; O2SAT 96
[2018-01-16 04:00] VITALS: BP 124/60; PULSE 68; RESP 24; TEMP 98; O2SAT 95
[2018-01-16 08:00] VITALS: BP 191/77; PULSE 61; RESP 16; TEMP 97.7; O2SAT 94
[2018-01-16] MEDS: INSULIN NovoLIN REGULAR SUPPLEMENTAL SCALE SQ SCH ×2 (08:00→11:32)
[2018-01-16] MEDS: SODIUM CHLORIDE 0.9% FLUSH 10 ML FLUSH IV FLUSH SCH (08:20)
[2018-01-16] MEDS: cloNIDine HCL 0.1 MG TAB PO PRN (08:22)
[2018-01-16] MEDS: CHOLECALCIFEROL (VIT D3) 1000 UNIT TAB PO SCH (08:22)
[2018-01-16] MEDS: PANTOPRAZOLE SODIUM 40 MG VIAL IVP SCH (08:22)
[2018-01-16] MEDS: LISINOPRIL 10 MG TAB PO SCH (08:22)
[2018-01-16] MEDS: FINASTERIDE 5 MG TAB PO SCH (08:22)
[2018-01-16] MEDS: ACETAMINOPHEN/HYDROcodone 325 MG/10 MG TAB PO PRN ×2 (08:22→14:28)
[2018-01-16] MEDS: DOCUSATE SODIUM 50 MG/SENNA 8.6 MG TAB PO SCH (08:23)
[2018-01-16 11:54] VITALS: BP 106/51; PULSE 62; RESP 16; TEMP 98.1; O2SAT 94
== END 2018-01-16 17:25 | DRG 32 ==
LOC: HSDI 08:06 → N05A 15:13
PROVIDERS: ADMIT Neurological Surgery; ATTEND Neurological Surgery
PROC: 00160J6 Bypass Cerebral Ventricle to Peritoneal Cavity with Synthetic Substitute, Open Approach (ICD-10-PCS; principal; 2018-01-11 10:45)
DX: G91.2 (Idiopathic) normal pressure hydrocephalus (principal); R44.3 Hallucinations, unspecified; F03.90 Unspecified dementia, unspecified severity, without behavioral disturbance, psychotic disturbance, mood disturbance, and anxiety; E11.9 Type 2 diabetes mellitus without complications; I10 Essential (primary) hypertension; S80.212A Abrasion, left knee, initial encounter; W01.0XXA Fall on same level from slipping, tripping and stumbling without subsequent striking against object, initial encounter; Y92.230 Patient room in hospital as the place of occurrence of the external cause; G47.30 Sleep apnea, unspecified; R25.1 Tremor, unspecified; Z87.891 Personal history of nicotine dependence; Z86.718 Personal history of other venous thrombosis and embolism; Z79.84 Long term (current) use of oral hypoglycemic drugs
CPT/HCPCS: 70450; 82948; 93005; 94150; C9113; J0131; J0690; J1100; J1580; J2270; J2370; J2405; J3010; J3370; J3480; J7050; J7120

== ENCOUNTER 2018-01-25 16:51 | Inpatient (IN) | payer OTHER, MEDICARE ==
[~2018-01-25] VITALS: Ht 170.2 cm; Wt 85.0 kg
[~2018-01-25 16:51] MED LIST changes: +HYDR-3366 PO
[2018-01-25 16:59] VITALS: BP 190/82; PULSE 73; RESP 18; O2SAT 98
[2018-01-25] MEDS ORDERED: SODIUM CHLORIDE 0.9% FLUSH 10 ML FLUSH IV FLUSH PRN (17:00)
[2018-01-25 17:05] VITALS: BP 190/82; PULSE 72; RESP 18; O2SAT 98
[2018-01-25 17:12] VITALS: O2SAT 98
--- NOTE | 2018-01-25 17:52 | RADRPT ---
EXAM DATE: 01/25/2018 5:48 PM EDT AGE/SEX: 82 years / Male INDICATIONS: Syncopal episode and shortness of breath CLINICAL DATA: This is the patient's initial encounter. Patient reports that signs and symptoms have been present for 1 day and indicates a pain score of Nonresponsive. MEDICAL/SURGICAL HISTORY: Non-responsive. Non-responsive. COMPARISON: No prior exams available for comparison. FINDINGS: The lungs are clear without infiltrate, nodule, or mass. There is no appreciable pleural effusion for technique. Heart and mediastinum are unremarkable. BRANCH OPERATIONS SPECIALIST shunt is identified on the right side. CONCLUSION: No acute cardiopulmonary disease. Electronically signed by: Nakita Foley MD 01/25/2018 5:50 PM EDT
[2018-01-25 17:56] LABS: AUTOMATED NEUTROPHIL # 6.6 TH/MM3 (1.8-7.7); BASOPHIL % 0.3 % (0.0-2.0); EOSINOPHIL % 0.5 % (0.0-4.0); HEMATOCRIT 41.1 % (39.0-51.0); HEMOGLOBIN 14.6 GM/DL (13.0-17.0); LYMPHOCYTE # 1.8 TH/MM3 (1.0-4.8); MEAN CELL VOLUME 89.2 FL (80.0-100.0); MEAN CORPUSCULAR HEMOGLOBIN 31.7 PG (27.0-34.0); MEAN CORPUSCULAR HGB CONC 35.6 % (32.0-36.0); MEAN PLATELET VOLUME 7.7 FL (7.0-11.0); MONO % 5.6 % (0.0-8.0); MONOCYTE # 0.5 TH/MM3 (0-0.9); NEUT % 73.6 % (16.0-70.0); PLATELET COUNT 212 TH/MM3 (150-450); RED BLOOD COUNT 4.61 MIL/MM3 (4.50-5.90); RED CELL DISTRIBUTION WIDTH 15.7 % (11.6-17.2); WHITE BLOOD COUNT 8.9 TH/MM3 (4.0-11.0)
[2018-01-25 18:10] LABS: ALT (GPT) 21 U/L (12-78)
[2018-01-25 18:12] LABS: BILIRUBIN, URINE NEG (NEG); BLOOD, URINE TRACE (NEG); GLUCOSE,URINE 300 mg/dL (NEG); KETONE, URINE NEG (NEG); NITRITE,URINE NEG (NEG); PH, URINE 5.5 (5.0-8.5); URINE COLOR LIGHT-YELLOW (YELLW/STRAW); URINE LEUKOCYTE ESTERASE NEG (NEG)
[2018-01-25 18:15] VITALS: BP 169/70; PULSE 56; RESP 18; O2SAT 99
[2018-01-25] MEDS ORDERED: HUMALOG SQ (18:15)
[2018-01-25] MEDS ORDERED: TYLE325T PO (18:15)
[2018-01-25] MEDS ORDERED: TRAM50 PO (18:15)
[2018-01-25] MEDS: SODIUM CHLOR 0.9% 1000 ML INJ 1,000 ML IV SCH ×2 (18:16→21:58)
[2018-01-25 18:17] LABS: PROTHROMBIN TIME - PATIENT 10.2 SEC (9.8-11.6)
[2018-01-25 18:45] LABS: ALBUMIN 3.6 GM/DL (3.4-5.0); ALKALINE PHOSPHATASE 111 U/L (45-117); AST (GOT) 14 U/L (15-37); BICARBONATE 27.8 MEQ/L (21.0-32.0); BLOOD UREA NITROGEN 16 MG/DL (7-18); CHLORIDE 99 MEQ/L (98-107); CREATININE 1.02 MG/DL (0.60-1.30); GLOMERULAR FILTRATION RATE 70 ML/MIN (>89); GLUCOSE,RANDOM 212 MG/DL (74-106); SODIUM (NA) 136 MEQ/L (136-145); TOTAL BILIRUBIN ADULT 0.6 MG/DL (0.2-1.0); TOTAL PROTEIN 7.6 GM/DL (6.4-8.2); TROPONIN I LESS THAN 0.02 NG/ML (0.02-0.05)
--- NOTE | 2018-01-25 19:00 | PD ---
HPI Chief Complaint: Neuro Symptoms/ Deficits Time Seen by Provider: 16:59 Travel History International Travel<30 days: No Contact w/Intl Traveler<30days: No Traveled to known affect area: No History of Present Illness HPI 82-year-old male with history of normal pressure hydrocephalus, who had a STAFF WRITER shunt placed on 01/11/2018, who presents here with complaints of confusion and pain in the neck and pain in his total body. Patient is at a rehab facility postsurgically. According to the patient's , he is become increasingly confused and has been complaining of severe headache. There is no reported fevers, chills. There is reported vomiting and nausea. There is no reported productive cough. The patient has been also complaining of fluid sensation in his left ear. The patient is an extremely poor historian and is unable to give clear history at this time. PFSH Past Medical History Arthritis: Yes Asthma: No Autoimmune Disease: No Blood Disorders: No Anxiety: No Depression: No Heart Rhythm Problems: No Cancer: No Cardiovascular Problems: No High Cholesterol: Yes Chemotherapy: No Chest Pain: No Congestive Heart Failure: No COPD: No Cerebrovascular Accident: No Diabetes: Yes Patient Takes Glucophage: No Diminished Hearing: No Endocrine: Yes GERD: No Glaucoma: No Genitourinary: Yes (INCONTINENCE) Headaches: No Hepatitis: No Hiatal Hernia: No Hypertension: Yes Immune Disorder: No Kidney Stones: No Musculoskeletal: Yes (arthritis) Neurologic: Yes (STROKE, gen weakness, slight memory issues) Psychiatric: No Reproductive: No Respiratory: Yes (SLEEP APNEA- does not use machine, prev hx of PE) Immunizations Current: Yes Migraines: No Myocardial Infarction: No Radiation Therapy: Yes ( A CHILD ON HIS LEG) Renal Failure: No Seizures: No Sickle Cell Disease: No Sleep Apnea: Yes Thyroid Disease: No Ulcer: No Tetanus Vaccination: Unknown Influenza Vaccination: No ?: Not Past Surgical History Abdominal Surgery: Yes (STACEY) AICD: No Appendectomy: No Arteriovenous Shunt: No Cardiac Surgery: No Cholecystectomy: Yes Ear Surgery: No Endocrine Surgery: No Eye Surgery: No Genitourinary Surgery: No Gynecologic Surgery: No Insulin Pump: No Joint Replacement: No Neurologic Surgery: Yes (CRANIAL SHUNT) Oral Surgery: Yes (TONSILLECTY) Pacemaker: No Thoracic Surgery: No Tonsillectomy: Yes Social History Alcohol Use: No Tobacco Use: No Substance Use: No Allergies-Medications (Allergen,Severity, Reaction): Coded Allergies: No Known Allergies (Verified Allergy, Unknown, 01/11/18) Reported Meds & Prescriptions Reported Meds & Active Scripts Active [place] (Hydrocodone-Acetaminophen) 10-325 Mg Tab 1 Tab PO Q6H PRN Reported Humalog Inj (Insulin Human Lispro) 1,000 Unit/10 Ml Vial 2-12 Units SQ ACHS Max dose at bedtime:( )units; sugars < 70,(0)units; sugars 150-199,(2)units; sugars 200-249,(4)units; sugars 250-299,(7)units; sugars 300-349,(10)units; sugars more than 349,(12)units. Tylenol (Acetaminophen) 325 Mg Tab 325 Mg PO Q4H PRN Ultram (Tramadol HCl) 50 Mg Tab 50 Mg PO Q6H PRN Vitamin D3 (Cholecalciferol) 2,000 Unit Cap 2,000 Units PO DAILY Lisinopril 10 Mg Tab 10 Mg PO DAILY Trulicity Inj (Dulaglutide Inj) 0.75 Mg/0.5 Ml Pen 0.75 Mg SQ Q7D Glipizide 10 Mg Tab 20 Mg PO DAILY Take 30 minutes before a meal Finasteride 5 Mg Tab 5 Mg DAILY Do not crush. Review of Systems ROS Limitations: Altered Mental Status, Poor Historian Except as stated in HPI: all other systems reviewed are Neg General / Constitutional: No: Fever, Chills Eyes: No: Blurred Vision, Pain HENT: Positive: Headaches, Neck Pain (Mild posterior), Other (Decreased hearing in the right ear with water sensation in the) Cardiovascular: No: Chest Pain or Discomfort, Palpitations Respiratory: No: Cough, Shortness of Breath Gastrointestinal: Positive: Nausea, Vomiting, No: Diarrhea, Abdominal Pain Genitourinary: Positive: Incontinence (Previously secondary to his normal pressure hydrocephalus), No: Dysuria Musculoskeletal: Positive: Pain (All over"), No: Weakness (") Neurologic: Positive: Weakness (Generalized), Headache, Change in Mentation, Incontinence (Previously secondary to his normal pressure hydrocephalus) Physical Exam Narrative GENERAL: Well developed well-nourished male in no acute respiratory distress. SKIN: Focused skin assessment warm/dry. HEAD: Atraumatic. Normocephalic. On examination the patient's scalp the incision site appears clean dry and intact. There is no drainage or redness. EYES: Pupils equal and round. No scleral icterus. No injection or drainage. ENT: No nasal bleeding or discharge. Mucous membranes pink and moist. NECK: Trachea midline. Supple. CARDIOVASCULAR: Regular rate and rhythm. No murmur appreciated. RESPIRATORY: No accessory muscle use. Clear to auscultation. Breath sounds equal bilaterally. GASTROINTESTINAL: Abdomen soft, non-tender, nondistended. Hepatic and splenic margins not palpable. MUSCULOSKELETAL: No obvious deformities. No clubbing. No cyanosis. No edema. NEUROLOGICAL: Awake and confused. No obvious cranial nerve deficits. Motor grossly within normal limits. Normal speech. The patient is hard of hearing. Data Data Last Documented VS Vital Signs Date Time Temp Pulse Resp B/P (MAP) Pulse Ox O2 Delivery O2 Flow Rate FiO2 01/25/18 18:15 56 18 169/70 (103) 99 Room Air Orders Orders Electrocardiogram (01/25/18 16:59) Ammonia (01/25/18 16:59) Complete Blood Count With Diff (01/25/18 16:59) Comprehensive Metabolic Panel (01/25/18 16:59) Creatine Kinase (Cpk) (01/25/18 16:59) Prothrombin Time / Inr (Pt) (01/25/18 16:59) Act Partial Throm Time (Ptt) (01/25/18 16:59) Troponin I (01/25/18 16:59) Thyroid Stimulating Hormone (01/25/18 16:59) Urinalysis - C+S If Indicated (01/25/18 16:59) Chest, Single Ap (01/25/18 16:59) Ct Brain W/O Iv Contrast(Rout) (01/25/18 16:59) Blood Glucose (01/25/18 16:59) Ecg Monitoring (01/25/18 16:59) Iv Access Insert/Monitor (01/25/18 16:59) Oximetry (01/25/18 16:59) Sodium Chloride 0.9% Flush (Ns Flush) (01/25/18 17:00) Sodium Chlor 0.9% 1000 Ml Inj (Ns 1000 M (01/25/18 16:59) Labs Laboratory Tests Test 01/25/18 17:15 White Blood Count 8.9 TH/MM3 Red Blood Count 4.61 MIL/MM3 Hemoglobin 14.6 GM/DL Hematocrit 41.1 % Mean Corpuscular Volume 89.2 FL Mean Corpuscular Hemoglobin 31.7 PG Mean Corpuscular Hemoglobin Concent 35.6 % Red Cell Distribution Width 15.7 % Platelet Count 212 TH/MM3 Mean Platelet Volume 7.7 FL Neutrophils (%) (Auto) 73.6 % Lymphocytes (%) (Auto) 20.0 % Monocytes (%) (Auto) 5.6 % Eosinophils (%) (Auto) 0.5 % Basophils (%) (Auto) 0.3 % Neutrophils # (Auto) 6.6 TH/MM3 Lymphocytes # (Auto) 1.8 TH/MM3 Monocytes # (Auto) 0.5 TH/MM3 Eosinophils # (Auto) 0.0 TH/MM3 Basophils # (Auto) 0.0 TH/MM3 CBC Comment DIFF FINAL Differential Comment Prothrombin Time 10.2 SEC Prothromb Time International Ratio 1.0 RATIO Activated Partial Thromboplast Time 23.9 SEC Urine Color LIGHT-YELLOW Urine Turbidity CLEAR Urine pH 5.5 Urine Specific [place] 1.006 Urine Protein NEG mg/dL Urine Glucose (UA) 300 mg/dL Urine Ketones NEG mg/dL Urine Occult Blood TRACE Urine Nitrite NEG Urine Bilirubin NEG Urine Urobilinogen LESS THAN 2.0 MG/DL Urine Leukocyte Esterase NEG Urine RBC LESS THAN 1 /hpf Urine WBC LESS THAN 1 /hpf Microscopic Urinalysis Comment CATH-CULT NOT IND Blood Urea Nitrogen 16 MG/DL Creatinine 1.02 MG/DL Random Glucose 212 MG/DL Total Protein 7.6 GM/DL Albumin 3.6 GM/DL Calcium Level 9.0 MG/DL Alkaline Phosphatase 111 U/L Aspartate Amino Transf (AST/SGOT) 14 U/L Alanine Aminotransferase (ALT/SGPT) 21 U/L Total Bilirubin 0.6 MG/DL Sodium Level 136 MEQ/L Potassium Level 4.8 MEQ/L Chloride Level 99 MEQ/L Carbon Dioxide Level 27.8 MEQ/L Anion Gap 9 MEQ/L Estimat Glomerular Filtration Rate 70 ML/MIN Ammonia 17 MCMOL/L Total Creatine Kinase 34 U/L Troponin I LESS THAN 0.02 NG/ML Thyroid Stimulating Hormone 3rd Gen 1.250 uIU/ML MDM Medical Decision Making Medical Screen Exam Complete: Yes Emergency Medical Condition: Yes Differential Diagnosis Infection versus over shunting versus under shunting Narrative Course 82-year-old male with history of normal pressure hydrocephalus, who had a STAFF WRITER shunt placed on 01/11/2018, presents here with confusion and headache and body aches. Patient's labs look relatively unimpressive. His sugar is slightly high. CT brain shows what appears to be over shunting of his STAFF WRITER shunt. There is flattening of the sulci. The case was discussed with Dr. Cabrera, covering for Dr. Kuo, patient's neurosurgeon, who will adjust the shunt. The patient will be admitted to the medicine service. There is a call out to the medicine service. Diagnosis Primary Impression: Altered mental status Additional Impressions: STAFF WRITER over shunting History of normal pressure hydrocephalus. Hyperglycemia Admitting Information Admitting Physician Requests: Admit Roque Aquino MD Jan 25, 2018 19:00
--- NOTE | 2018-01-25 19:40 | RADRPT ---
EXAM DATE: 01/25/2018 7:16 PM EDT AGE/SEX: 82 years / Male INDICATIONS: Altered mental status. CLINICAL DATA: This is the patient's initial encounter. Patient reports that signs and symptoms have been present for 1 day and indicates a pain score of Nonresponsive. MEDICAL/SURGICAL HISTORY: Cerebrovascular disease. Hypertension. Diabetes. . Shunt RADIATION DOSE: 45.16 CTDI (mGy) COMPARISON: [facility] – [place], [place] BRAIN W/O CONTRAST, 01/11/2018. . TECHNIQUE: CT of the head without contrast. Using automated exposure control and adjustment of the mA and/or kV according to patient size, radiation dose was kept as low as reasonably achievable to ob tain optimal diagnostic quality images. FINDINGS: Cerebrum: The lateral ventricles are nearly slitlike. There is a ventriculostomy tube in place from the right frontal approach. On the prior exam the ventricles were dilated. There has been development of extra-axial fluid collections over the cerebral hemispheres bilaterally. These measure up to 1.3 cm bilaterally. There is effacement of the sulci. No evidence of midline shift, intra-axial mass le mrali, hemorrhage or acute infarction. Posterior Fossa: The cerebellum and brainstem are intact. The 4th ventricle is midline. The cerebe llopontine angle is unremarkable. Extracranial: The visualized portion of the orbits is intact. There is opacification of the left max illary sinus. Skull: The calvaria is intact. No evidence of skull fracture. CONCLUSION: 1. The ventricles clearly have decreased in size. There is also been development of bilateral extra- axial fluid collections. There is effacement of the sulci which has developed with the hypodense extr a axial fluid collections. 2. Left maxillary sinus disease. Electronically signed by: Leland Houston MD 01/25/2018 7:38 PM EDT
--- NOTE | 2018-01-25 20:16 | HHI.HP ---
HPI Service Neurosurgery Primary Care Physician Laurie Yusuf MD Chief Complaint: Headache, neck pain, nausea status post shunt History of Present Illness Mr. Garcia is an 82-year-old male who previously underwent ventriculoperitoneal shunt on 01/11/[address] Kuo for treatment of NPH. The patient's states that the patient has complained of neck pain since the shunt placement. He has been at an inpatient rehabilitation facility following discharge last week. His states that the patient has become increasingly confused over the past few days. He complains of a postural headache which increases when he is sitting up. He has also been nauseated with a few episodes of emesis over the past few days. No fevers or chills. No new weakness in the extremities. He has not been ambulating in therapy yet. Review of Systems Constitutional: COMPLAINS OF: Fatigue, DENIES: Fever, Dizziness Eyes: DENIES: Blurred vision, Diplopia Ears, nose, mouth, throat: DENIES: Vertigo Respiratory: DENIES: Shortness of breath Cardiovascular: DENIES: Chest pain Gastrointestinal: COMPLAINS OF: Nausea, Vomiting, DENIES: Abdominal pain Musculoskeletal: COMPLAINS OF: Muscle aches, Neck pain, DENIES: Joint pain Neurologic: COMPLAINS OF: Abnormal gait, Headache Psychiatric: COMPLAINS OF: Confusion Past Family Social History Allergies: Coded Allergies: No Known Allergies (Verified Allergy, Unknown, 01/11/18) Past Medical History Type 2 diabetes Hypertension NPH History of cholecystitis Arthritis Past Surgical History Ventriculoperitoneal shunt December 2017 Laparoscopic cholecystectomy Reported Medications Reported Meds & Active Scripts Active [place] (Hydrocodone-Acetaminophen) 10-325 Mg Tab 1 Tab PO Q6H PRN Reported Humalog Inj (Insulin Human Lispro) 1,000 Unit/10 Ml Vial 2-12 Units SQ ACHS Max dose at bedtime:( )units; sugars < 70,(0)units; sugars 150-199,(2)units; sugars 200-249,(4)units; sugars 250-299,(7)units; sugars 300-349,(10)units; sugars more than 349,(12)units. Tylenol (Acetaminophen) 325 Mg Tab 325 Mg PO Q4H PRN Ultram (Tramadol HCl) 50 Mg Tab 50 Mg PO Q6H PRN Vitamin D3 (Cholecalciferol) 2,000 Unit Cap 2,000 Units PO DAILY Lisinopril 10 Mg Tab 10 Mg PO DAILY Trulicity Inj (Dulaglutide Inj) 0.75 Mg/0.5 Ml Pen 0.75 Mg SQ Q7D Glipizide 10 Mg Tab 20 Mg PO DAILY Take 30 minutes before a meal Finasteride 5 Mg Tab 5 Mg DAILY Do not crush. Family History History of cancer in his brothers. Social History Presently in inpatient rehabilitation. Otherwise lives with his . Quit smoking many years ago. No significant alcohol intake Physical Exam Vital Signs Vital Signs Date Time Temp Pulse Resp B/P (MAP) Pulse Ox O2 Delivery O2 Flow Rate FiO2 01/25/18 18:15 56 18 169/70 (103) 99 Room Air 01/25/18 17:12 98 Room Air 01/25/18 17:05 72 18 190/82 (118) 98 Room Air 01/25/18 17:05 18 98 Room Air 01/25/18 16:59 73 18 190/82 (118) 98 Physical Exam GENERAL: This is a well-nourished, well-developed patient, no apparent distress. SKIN: No abrasions, contusion, rash noted. Skin warm and dry. Scalp and abdominal shunt incisions are dry and intact without erythema drainage or excessive tenderness HEAD: Atraumatic. Normocephalic. No temporal or scalp tenderness. EYES: Sclerae are clear and nonicteric ENT: No facial edema or ecchymosis. No periorbital edema. No CSF otorrhea or rhinorrhea. No palpable facial fracture or deformity. NECK: Trachea midline. No cervical spine tenderness. CARDIOVASCULAR: Regular rate and rhythm without murmurs, gallops, or rubs. RESPIRATORY: Clear to auscultation. Breath sounds equal bilaterally. No wheezes , rales, or rhonchi. GASTROINTESTINAL: Abdomen soft, non-tender, nondistended. No hepato-splenomegaly , or palpable masses. No guarding. MUSCULOSKELETAL: Extremities without cyanosis, or edema. No joint tenderness, or edema noted. No calf tenderness. Dorsalis pedis pulses 2+ bilateral NEUROLOGICAL: Awake and alert Oriented X hospital, month Speech is clear Converses a little-moderately confused Follow simple commands well Diminished judgment and insight Recent and remote memory are moderately impaired No evidence of anxiety or depression Pupils are equal and reactive to accommodation. Extra-ocular movements, visual duran to confrontation, facial sensorimotor, tongue, palate, sternocleidomastoid testing, hearing to finger rub testing, and bilateral shoulder shrug are all intact. Sensation is intact to light touch in all extremities Strength normal major flexion and extension groups all extremities Rigo's absent bilaterally No ankle clonus Plantar responses absent bilateral Fine motor movements intact upper extremities Laboratory Laboratory Tests Test 01/25/18 17:15 White Blood Count 8.9 Red Blood Count 4.61 Hemoglobin 14.6 Hematocrit 41.1 Mean Corpuscular Volume 89.2 Mean Corpuscular Hemoglobin 31.7 Mean Corpuscular Hemoglobin Concent 35.6 Red Cell Distribution Width 15.7 Platelet Count 212 Mean Platelet Volume 7.7 Neutrophils (%) (Auto) 73.6 Lymphocytes (%) (Auto) 20.0 Monocytes (%) (Auto) 5.6 Eosinophils (%) (Auto) 0.5 Basophils (%) (Auto) 0.3 Neutrophils # (Auto) 6.6 Lymphocytes # (Auto) 1.8 Monocytes # (Auto) 0.5 Eosinophils # (Auto) 0.0 Basophils # (Auto) 0.0 CBC Comment DIFF FINAL Differential Comment Prothrombin Time 10.2 Prothromb Time International Ratio 1.0 Activated Partial Thromboplast Time 23.9 Urine Color LIGHT-YELLOW Urine Turbidity CLEAR Urine pH 5.5 Urine Specific [place] 1.006 Urine Protein NEG Urine Glucose (UA) 300 Urine Ketones NEG Urine Occult Blood TRACE Urine Nitrite NEG Urine Bilirubin NEG Urine Urobilinogen LESS THAN 2.0 Urine Leukocyte Esterase NEG Urine RBC LESS THAN 1 Urine WBC LESS THAN 1 Microscopic Urinalysis Comment CATH-CULT NOT IND Blood Urea Nitrogen 16 Creatinine 1.02 Random Glucose 212 Total Protein 7.6 Albumin 3.6 Calcium Level 9.0 Alkaline Phosphatase 111 Aspartate Amino Transf (AST/SGOT) 14 Alanine Aminotransferase (ALT/SGPT) 21 Total Bilirubin 0.6 Sodium Level 136 Potassium Level 4.8 Chloride Level 99 Carbon Dioxide Level 27.8 Anion Gap 9 Estimat Glomerular Filtration Rate 70 Ammonia 17 Total Creatine Kinase 34 Troponin I LESS THAN 0.02 Thyroid Stimulating Hormone 3rd Gen 1.250 Result Diagram: 01/25/18 1715 01/25/18 1715 Imaging 01/25/2018 CT scan head images reviewed by the undersigned. There is interval development of moderate bilateral extra-axial fluid collections compared to his prior postoperative CT scan. Ventricle size is significantly diminished. Shunt catheter in good position. Head CT 01/25/181658 Signed Impressions: CONCLUSION: 1. The ventricles clearly have decreased in size. There is also been developme nt of bilateral extra-axial fluid collections. There is effacement of the sulci which has developed with the hypodense extra axial fluid collections. 2. Left maxillary sinus disease. Chest X-Ray 01/25/181658 Signed Impressions: CONCLUSION: No acute cardiopulmonary disease. Caprini VTE Risk Assessment Caprini VTE Risk Assessment: Mod/High Risk (score >= 2) Caprini Risk Assessment Model Point Value = 1 Point Value = 2 Point Value = 3 Point Value = 5 Age 41-60 Minor surgery BMI > 25 kg/m2 Swollen legs Varicose veins or History of unexplained or recurrent spontaneous Oral contraceptives or hormone replacement Sepsis (< 1 month) Serious lung disease, including pneumonia (< 1 month) Abnormal pulmonary function Acute myocardial infarction Congestive heart failure (< 1 month) History of inflammatory bowel disease Medical patient at bed rest Age 61-74 Arthroscopic surgery Major open surgery (> 45 min) Laparoscopic surgery (> 45 min) Malignancy Confined to bed (> 72 hours) Immobilizing plaster cast Central venous access Age >= 75 History of VTE Family history of VTE Factor V Leiden Prothrombin [id number] Lupus anticoagulant Anticardiolipin antibodies Elevated serum homocysteine Heparin-induced thrombocytopenia Other congenital or acquired thrombophilia Stroke (< 1 month) Elective arthroplasty Hip, pelvis, or leg fracture Acute spinal cord injury (< 1 month) Prophylaxis Regimen Total Risk Factor Score Risk Level Prophylaxis Regimen 0-1 Low Early ambulation 2 Moderate Order ONE of the following: *Sequential Compression Device (SCD) *Heparin 5000 units SQ BID 3-4 Higher Order ONE of the following medications: *Heparin 5000 units SQ TID *Enoxaparin/Lovenox 40 mg SQ daily (WT < 150 kg, CrCl > 30 mL/min) *Enoxaparin/Lovenox 30 mg SQ daily (WT < 150 kg, CrCl > 10-29 mL/min) *Enoxaparin/Lovenox 30 mg SQ BID (WT < 150 kg, CrCl > 30 mL/min) AND/OR *Sequential Compression Device (SCD) 5 or more Highest Order ONE of the following medications: *Heparin 5000 units SQ TID (Preferred with Epidurals) *Enoxaparin/Lovenox 40 mg SQ daily (WT < 150 kg, CrCl > 30 mL/min) *Enoxaparin/Lovenox 30 mg SQ daily (WT < 150 kg, CrCl > 10-29 mL/min) *Enoxaparin/Lovenox 30 mg SQ BID (WT < 150 kg, CrCl > 30 mL/min) AND *Sequential Compression Device (SCD) Assessment and Plan Assessment and Plan Impression: 1. Status post ventriculoperitoneal shunt placement for NPH. Now with symptoms and imaging findings consistent with shunt over drainage, development of bilateral moderate subdural hygroma. 2. Type 2 diabetes 3. Hypertension Plan: Findings were discussed with the patient and his in the emergency room. Discussed with emergency room physician Have advised admission for close observation. Patient at risk for developing subdural hematoma. Continue bedrest, out of bed with assistance. The shunt has been changed from an initial setting of 100 up to a new pressure of 200 mm water pressure in the emergency room. A follow-up CT scan head will be obtained on 01/27/2018 unless new symptoms otherwise develop. Follow-up CT scan head satisfactory, will increase physical therapy to ambulation as tolerated. Continue oral hypoglycemic medications with insulin sliding scale. Continue antihypertensive medications. SCDs for DVT prophylaxis New Cabrera MD Jan 25, 2018 20:16
[2018-01-25] MEDS ORDERED: NON-FORMULARY DRUG (Dulaglutide Inj (Trulicity Inj) 0.75 MG) SQ SCH (20:30)
[2018-01-25] MEDS ORDERED: traMADol HCL 50 MG TAB PO PRN (20:30)
[2018-01-25] MEDS ORDERED: GLUCAGON 1 MG/ML VIAL OTHER PRN (20:30)
[2018-01-25] MEDS ORDERED: NALOXONE HCL 0.4 MG/ML AMP IV PUSH PRN (20:30)
[2018-01-25] MEDS ORDERED: DEXTROSE 50% IN WATER 50 ML VIAL(D50) IV PUSH PRN (20:30)
[2018-01-25] MEDS ORDERED: ACETAMINOPHEN 325 MG TAB PO PRN (20:30)
[2018-01-25] MEDS ORDERED: ACETAMINOPHEN/HYDROcodone 325 MG/5 MG TAB PO PRN (20:30)
[2018-01-25 20:31] VITALS: BP 175/72; PULSE 71; RESP 16; O2SAT 98
[2018-01-25] MEDS ORDERED: ONDANSETRON ODT 4 MG TAB PO PRN (20:45)
[2018-01-25] MEDS: DOCUSATE SODIUM 100 MG CAP PO SCH (21:00)
[2018-01-25 21:24] VITALS: BP 175/77; PULSE 80; RESP 16; TEMP 98.1; O2SAT 97
[2018-01-25] MEDS: INSULIN ASPART SUPPLEMENTAL SCALE SQ SCH (22:38)
[2018-01-26 03:16] VITALS: BP 168/72; PULSE 81; RESP 16; TEMP 97.9; O2SAT 97
[2018-01-26 07:27] VITALS: BP 153/66; PULSE 76; RESP 18; TEMP 98.9; O2SAT 97
[2018-01-26] MEDS: glipiZIDE 10 MG TAB PO SCH (07:39)
[2018-01-26] MEDS: DOCUSATE SODIUM 100 MG CAP PO SCH ×2 (07:39→21:00)
[2018-01-26] MEDS: LISINOPRIL 10 MG TAB PO SCH (07:40)
[2018-01-26] MEDS: CHOLECALCIFEROL (VIT D3) 1000 UNIT TAB PO SCH (07:40)
[2018-01-26] MEDS: FINASTERIDE 5 MG TAB PO SCH (07:42)
[2018-01-26] MEDS: INSULIN ASPART SUPPLEMENTAL SCALE SQ SCH ×4 (07:43→21:00)
[2018-01-26 12:49] VITALS: BP 130/82; PULSE 85; RESP 18; TEMP 98.3; O2SAT 95
--- NOTE | 2018-01-26 15:03 | EKG ---
Date Performed: 01/25/2018 Time Performed: 17:14:31 PTAGE: 82 years EKG: Sinus rhythm RIGHT BUNDLE BRANCH BLOCK LEFT ANTERIOR FASCICULAR BLOCK MODERATE VOLTAGE CRITERIA FOR LVH, CONSIDER NORMAL VARIANT POSSIBLE SEPTAL MYOCARDIAL INFARCTION ABNORMAL ECG PREVIOUS TRACING : 01/11/2018 08.47 Since the previous tracing, no significant change noted DOCTOR: Benji Adamson Interpretating Date/Time 01/26/2018 15:02:49
[2018-01-26 16:38] VITALS: BP 104/52; PULSE 75; RESP 18; TEMP 98.8; O2SAT 97
[2018-01-26 19:30] VITALS: BP 128/89; PULSE 66; RESP 16; TEMP 98.4; O2SAT 98
--- NOTE | 2018-01-26 22:36 | HHI.NSPN ---
History Chief Complaint: Headache improving Interval History 82-year-old male status post ventriculoperitoneal shunt with recent increase headache, confusion, gait difficulty Recent CT scan head reveals bilateral subdural hygroma formation. 01/25/2018: Shunt pressure increased to 200 mm water pressure System Review Comments No KAUR Exam Results Vital Signs Date Time Temp Pulse Resp B/P (MAP) Pulse Ox O2 Delivery O2 Flow Rate FiO2 01/26/18 19:30 98.4 66 16 128/89 (102) 98 01/25/18 20:31 Room Air Intake and Output 01/26/18 01/26/18 01/27/18 08:00 16:00 00:00 Intake Total 950 ml 500 ml 200 ml Output Total 500 ml Balance 950 ml 0 ml 200 ml Physical Examination Alert O X 3 Speech clear and appropriate CN 2-12 and extremity sensorimotor intact Ambulating better with PT Medical Decision Making Impression and Plan Impression: 1. Improved symptoms and exam following ventriculoperitoneal shunt adjustment Plan: Continue therapy Continue close observation and neurologic checks Follow-up CT scan head 01/27/2018 New Cabrera MD Jan 26, 2018 22:36
[2018-01-26 23:51] VITALS: BP 168/67; PULSE 69; RESP 16; TEMP 98.5; O2SAT 98
[2018-01-27 04:00] VITALS: BP 176/71; PULSE 64; RESP 17; O2SAT 96
[2018-01-27] MEDS ORDERED: LISINOPRIL 10 MG TAB PO ONE (05:00)
[2018-01-27 07:05] VITALS: BP 148/66; PULSE 63; RESP 18; TEMP 98.7; O2SAT 98
[2018-01-27] MEDS: INSULIN ASPART SUPPLEMENTAL SCALE SQ SCH (08:00)
[2018-01-27] MEDS: DOCUSATE SODIUM 100 MG CAP PO SCH (09:00)
--- NOTE | 2018-01-27 09:07 | RADRPT ---
EXAM DATE: 01/27/2018 8:52 AM EDT AGE/SEX: 82 years / Male INDICATIONS: Abnormal prior CT brain. CLINICAL DATA: This is the patient's subsequent encounter. Patient reports that signs and symptoms h ave been present for 1 day and indicates a pain score of 5/10. MEDICAL/SURGICAL HISTORY: Hypertension. Diabetes. Tonsillectomy. Chest tube, right. Cranial shunt placement RADIATION DOSE: 69.13 CTDI (mGy) COMPARISON: [facility] [place], CT BRAIN W/O CONTRAST, 01/25/2018. . TECHNIQUE: CT of the head without contrast. Using automated exposure control and adjustment of the mA and/or kV according to patient size, radiation dose was kept as low as reasonably achievable to ob tain optimal diagnostic quality images. FINDINGS: Ventriculoperitoneal shunt catheter identified from a right femoral approach. There is a small amount of intraventricular hemorrhage layering in the posterior horns. There is diffuse volume loss. Bilate ral hypodense subdural hygromas are identified. There are no signs of mass or acute infarction. The s ubdural collections are not significantly changed. There is a remote pontine lacunar infarct suspecte d and patchy white matter disease unchanged. No fractures. CONCLUSION: 1. There are stable bilateral subdural hygromas, volume loss and patchy white matter disease. 2. There is a trace amount of intraventricular hemorrhage layering in the posterior horns. Electronically signed by: Naren Killian MD 01/27/2018 9:06 AM EDT
[2018-01-27] MEDS: glipiZIDE 10 MG TAB PO SCH (10:14)
[2018-01-27] MEDS: FINASTERIDE 5 MG TAB PO SCH (10:14)
[2018-01-27] MEDS: CHOLECALCIFEROL (VIT D3) 1000 UNIT TAB PO SCH (10:14)
[2018-01-27] MEDS: LISINOPRIL 10 MG TAB PO SCH (10:14)
[2018-01-27 11:15] VITALS: BP 128/60; PULSE 75; RESP 18; TEMP 97.5; O2SAT 98
--- NOTE | 2018-01-27 11:47 | HHI.DCPOC ---
Discharge Care Plan Diagnosis: (1) Cerebral ventriculomegaly Your Health Problems Are: Difficulty with ADL Exercise Tolerance Goals to Promote Your Health * To prevent worsening of your condition and complications * To maintain your health at the optimal level Directions to Meet Your Goals Take your medications as prescribed Follow your dietary instruction Follow activity as directed Keep your appointments as scheduled Take your immunizations and boosters as scheduled If your symptoms worsen call your PCP, if no PCP go to Urgent Care Center or Emergency Room Smoking is Dangerous to Your Health. Avoid second hand smoke Call the 24-hour hour crisis hotline for domestic abuse at New Cabrera MD Jan 27, 2018 11:47
--- NOTE | 2018-01-27 11:53 | HHI.DS ---
Discharge Summary Admission Date Jan 25, 2018 at 19:59 Discharge Date: Jan 27, 2018 Admitting Diagnosis altered mental status, overshunting of vp [employer] and crm shunt, NPH, hypeglycemia (1) Cerebral ventriculomegaly Diagnosis: Principal ICD Code: G93.89 - Other specified disorders of brain Procedures Shunt adjustment Brief History Mr. Garcia is an 82-year-old male who previously underwent ventriculoperitoneal shunt on 01/11/[address] Kuo for treatment of NPH. The patient's states that the patient has complained of neck pain since the shunt placement. He has been at an inpatient rehabilitation facility following discharge last week. His states that the patient has become increasingly confused over the past few days. He complains of a postural headache which increases when he is sitting up. He has also been nauseated with a few episodes of emesis over the past few days. No fevers or chills. No new weakness in the extremities. He has not been ambulating in therapy yet. CBC/BMP: 01/25/18 1715 01/25/18 1715 Significant Findings Laboratory Tests Test 01/25/18 17:15 Neutrophils (%) (Auto) 73.6 % (16.0-70.0) Activated Partial Thromboplast Time 23.9 SEC (24.3-30.1) Urine Glucose (UA) 300 mg/dL (NEG) Urine Occult Blood TRACE (NEG) Random Glucose 212 MG/DL (74-106) Aspartate Amino Transf (AST/SGOT) 14 U/L (15-37) Estimat Glomerular Filtration Rate 70 ML/MIN (>89) Total Creatine Kinase 34 U/L (39-308) Troponin I LESS THAN 0.02 NG/ML Imaging Last Impressions Head CT 01/27/18 0600 Signed Impressions: CONCLUSION: 1. There are stable bilateral subdural hygromas, volume loss and patchy white matter disease. 2. There is a trace amount of intraventricular hemorrhage layering in the post erior horns. Chest X-Ray 01/25/18 1659 Signed Impressions: CONCLUSION: No acute cardiopulmonary disease. Hospital Course Shunt reset to 200 mm water pressure on 01/25/18. Steady improvement in neurologic symptoms and function. 01/27/18 F/U CT Head with improvement in bilateral subdural hygroma Pt Condition on Discharge: Stable Discharge Disposition: Discharge Home Discharge Instructions DIET: Follow Instructions for: Diabetic Diet ACTIVITIES You can perform: Weight Bearing As Dnadre Activities to Avoid: Lifting/Bending, Strenuous Activity Follow up Referrals: Appointment for Follow Up @ Dr Kuo Continued Medications: Acetaminophen (Tylenol) 325 Mg Tab 325 MG PO Q4H PRN for PAIN SCALE 1 TO 4, TAB 0 Refills Cholecalciferol (Vitamin D3) 2,000 Unit Cap 2000 UNITS PO DAILY for Nutritional Supplement, #1 BOTTLE 0 Refills Dulaglutide Inj (Trulicity Inj) 0.75 Mg/0.5 Ml Pen 0.75 MG SQ Q7D for Blood Sugar Management, #4 PEN 0 Refills Finasteride (Finasteride) 5 Mg Tab 5 MG DAILY for Manage Prostate Problems, #30 TAB 0 Refills Do not crush. Glipizide (Glipizide) 10 Mg Tab 20 MG PO DAILY for Blood Sugar Management, #30 TAB 0 Refills Take 30 minutes before a meal Hydrocodone-Acetaminophen ([place]) 10-325 Mg Tab 1 TAB PO Q6H PRN for PAIN, #60 TAB 0 Refills Insulin Lispro (Human) Inj (Humalog Inj) 1,000 Unit/10 Ml Vial 2-12 UNITS SQ ACHS for Blood Sugar Management, #1 VIAL 0 Refills Max dose at bedtime:( )units; sugars < 70,(0)units; sugars 150-199,(2)units; sugars 200-249,(4)units; sugars 250-299,(7)units; sugars 300-349,(10)units; sugars more than 349,(12)units. Lisinopril (Lisinopril) 10 Mg Tab 10 MG PO DAILY, #30 TAB 0 Refills Tramadol (Ultram) 50 Mg Tab 50 MG PO Q6H PRN for PAIN, TAB 0 Refills [place] Cabrera MD Jan 27, 2018 11:53
[2018-01-28] MEDS ORDERED: PT TRULICITY SQ SCH (09:00)
== END 2018-01-27 12:58 | disposition home or self-care (01) | DRG 815 ==
LOC: NEPC 16:51 → INTOOBSV 19:59 → NEDA 19:59 → OBSVTOIN 19:59 → NEPGCP 21:16
PROVIDERS: ADMIT Neurological Surgery; ATTEND Neurological Surgery
DX: D18.1 Lymphangioma, any site (principal); T85.890A Other specified complication of nervous system prosthetic devices, implants and grafts, initial encounter; G91.2 (Idiopathic) normal pressure hydrocephalus; G93.89 Other specified disorders of brain; E11.65 Type 2 diabetes mellitus with hyperglycemia; Z79.4 Long term (current) use of insulin; I10 Essential (primary) hypertension
CPT/HCPCS: 70450; 71045; 80053; 81001; 82140; 82550; 82948; 84443; 84484; 85025; 85610; 85730; 93005; 94150; 96360; 96361; J1815; J7030